=== PATIENT | male | born 1985 | race Caucasian/White ===

== ENCOUNTER → 2020-03-09 | Outpatient (CLI) | payer BC ==
--- NOTE | 2020-03-09 09:56 | Diagnostic Imaging Report ---
CLINICAL INDICATION: Patient states he has sinus pain for 6 months. EXAM: Axial CT scan of the maxillofacial structures without IV contrast . Coronal and sagittal reformations were performed. Auto Exposure Controls were utilized during the CT exam to meet ALARA standards for radiation dose reduction. COMPARISON: None. FINDINGS: PARANASAL SINUSES: FRONTAL: Unremarkable. ETHMOID: Unremarkable. MAXILLARY: There is minimal mucosal thickening on the floor of both maxillary sinuses (left side more than the right) . SPHENOID: Unremarkable. OTHER PARANASAL SINUS FINDINGS: None. NASAL SEPTUM: There is 3 mm rightward nasal septal deviation. VISUALIZED TEMPORAL BONE STRUCTURES: Unremarkable. BONY STRUCTURES: Unremarkable. EXTRACRANIAL SOFT TISSUE/ ORBITS: Unremarkable. IMPRESSION: 1: There is minimal bilateral maxillary sinus disease. 2: There is mild rightward nasal septal deviation. Dictated by: Dictated on workstation # [id number]
== END ==
LOC: RAD FS 08:05
PROVIDERS: ATTEND Family Medicine
DX: J34.2 Deviated nasal septum (principal); R09.89 Other specified symptoms and signs involving the circulatory and respiratory systems
CPT/HCPCS: 70486

== ENCOUNTER 2020-12-24 21:01 | Emergency (ER) | payer BC ==
[~2020-12-24] VITALS: Ht 180.3 cm; Wt 81.6 kg
--- NOTE | 2020-12-24 21:04 | ED Dyspnea ---
General Stated Complaint: SOB History of Present Illness Date Seen by Provider: Dec 24, 2020 Time Seen by Provider: 21:00 Initial Comments 35-year-old male presents with shortness of air for the past 4 days. Has been using his children's albuterol nebulizer with some relief. He does not have any significant past medical history is a non-smoker. States about the last 1 week he has not been feeling well, generalized body aches without fever and some mild weakness. Denies chest pain or wheezing, but having moderate shortness of air which has been getting worse. Allergies and Home Medications Allergies Coded Allergies: No Known Drug Allergies (Unverified , 12/24/20) Home Medications Dexamethasone 6 Mg Tablet, 6 MG PO DAILY Prescribed by: JEZ RODRIGUEZ on 12/24/202158 Ivermectin 3 Mg Tablet, 18 MG PO DAILY Prescribed by: JEZ RODRIGUEZ on 12/24/202153 Patient Home Medication List Home Medication List Reviewed: Yes Review of Systems Review of Systems Constitutional: No diaphoresis, No fever; malaise, weakness EENTM: no symptoms reported Respiratory: cough; No hemoptysis, No orthopnea, No phlegm; short of breath; No stridor, No wheezing Cardiovascular: chest pain (some mild discomfort Right lateral chest wall); No edema, No palpitations, No syncope Gastrointestinal: No abdominal pain, No loss of appetite, No nausea, No vomiting Musculoskeletal: No back pain, No joint pain Skin: No change in color, No rash Psychiatric/Neurological: Denies Headache, Denies Numbness, Denies Paresthesia, Denies Seizure, Denies Tingling, Denies Tremors; Weakness Past Uodtqwv-[id number]-Iewpqw Hx Patient Social History Tobacco Use?: No Physical Exam Vital Signs Vital Signs - First Documented 12/24/20 21:01 Temp 37.5 Pulse 114 Resp 22 B/P (MAP) 126/74 (91) Pulse Ox 96 O2 Delivery Room Air Capillary Refill : Height, Weight, BMI Height: '" Weight: lbs. oz. kg; BMI Method: General Appearance: No Apparent Distress, WD/WN HEENT: PERRL/EOMI, Normal ENT Inspection Neck: Normal Inspection, Non Tender, Supple Respiratory: Chest Non Tender, Lungs Clear, No Accessory Muscle Use, No Respiratory Distress, Crackles (R lower chest) Cardiovascular: No Edema, No JVD, Tachycardia Gastrointestinal: No Organomegaly, Non Tender, Soft Extremity: Normal Capillary Refill, Normal Inspection, Non Tender Neurologic/Psychiatric: Alert, Oriented x3, No Motor/Sensory Deficits, Normal Mood/Affect Skin: Normal Color, Warm/Dry Focused Exam Lactate Level 12/24/20 21:09: Lactic Acid Level 1.21 Lactic Acid Level Laboratory Tests Test 12/24/20 21:09 Lactic Acid Level 1.21 MMOL/L (0.50-2.00) Progress/Results/Core Measures Results/Orders Lab Results Laboratory Tests Test 12/24/20 21:09 Range/Units White Blood Count 4.9 4.3-11.0 10^3/uL Red Blood Count 5.33 4.35-5.85 10^6/uL Hemoglobin 16.1 13.3-17.7 G/DL Hematocrit 46 40-54 % Mean Corpuscular Volume 86 80-99 FL Mean Corpuscular Hemoglobin 30 25-34 PG Mean Corpuscular Hemoglobin Concent 35 32-36 G/DL Red Cell Distribution Width 12.2 10.0-14.5 % Platelet Count 146 130-400 10^3/uL Mean Platelet Volume 11.5 H 7.4-10.4 FL Immature Granulocyte % (Auto) 0 % Neutrophils (%) (Auto) 72 42-75 % Lymphocytes (%) (Auto) 21 12-44 % Monocytes (%) (Auto) 6 0-12 % Eosinophils (%) (Auto) 0 0-10 % Basophils (%) (Auto) 0 0-10 % Neutrophils # (Auto) 3.6 1.8-7.8 X 10^3 Lymphocytes # (Auto) 1.1 1.0-4.0 X 10^3 Monocytes # (Auto) 0.3 0.0-1.0 X 10^3 Eosinophils # (Auto) 0.0 0.0-0.3 10^3/uL Basophils # (Auto) 0.0 0.0-0.1 10^3/uL Immature Granulocyte # (Auto) 0.0 0.0-0.1 10^3/uL D-Dimer 0.35 0.00-0.49 UG/ML Sodium Level 133 L 135-145 MMOL/L Potassium Level 3.5 L 3.6-5.0 MMOL/L Chloride Level 96 L 98-107 MMOL/L Carbon Dioxide Level 22 21-32 MMOL/L Anion Gap 15 H 5-14 MMOL/L Blood Urea Nitrogen 10 7-18 MG/DL Creatinine 1.03 0.60-1.30 MG/DL Estimat Glomerular Filtration Rate > 60 BUN/Creatinine Ratio 10 Glucose Level 120 H 70-105 MG/DL Lactic Acid Level 1.21 0.50-2.00 MMOL/L Calcium Level 9.2 8.5-10.1 MG/DL Corrected Calcium 9.2 8.5-10.1 MG/DL Total Bilirubin 0.5 0.1-1.0 MG/DL Aspartate Amino Transf (AST/SGOT) 23 5-34 U/L Alanine Aminotransferase (ALT/SGPT) 15 0-55 U/L Alkaline Phosphatase 58 40-136 U/L C-Reactive Protein 3.06 H <0.50 MG/DL Total Protein 6.7 6.4-8.2 GM/DL Albumin 4.0 3.2-4.5 GM/DL My Orders Orders - JEZ RODRIGUEZ DO Ed Iv/Invasive Line Start (12/24/20 21:06) Blood Culture (12/24/20 21:06) Cbc With Automated Diff (12/24/20 21:06) Comprehensive Metabolic Panel (12/24/20 21:06) Procalcitonin (Pct) (12/24/20 21:06) Fibrin Degradation Products (12/24/20 21:06) Lactic Acid Analyzer (12/24/20 21:06) Chest 1 View Ap/Pa Only (12/24/20 21:06) Crp Fs (12/24/20 21:06) Ns Iv 1000 Ml (Sodium Chloride 0.9%) (12/24/20 21:15) Blood Culture (12/24/20 21:25) Dexamethasone Injection (Decadron Inje (12/24/20 21:30) Coronavirus Sars-Cov-2 So 2018 (12/24/20 21:33) Medications Given in ED Current Medications Medications Dose Ordered Sig/Mary Anne Route Start Time Stop Time Status Last Admin Dose Admin Dexamethasone Sodium Phosphate 10 mg ONCE ONCE IV 12/24/20 21:30 12/24/20 21:31 DC 12/24/20 21:45 10 MG Vital Signs/I&O 12/24/20 21:01 Temp 37.5 Pulse 114 Resp 22 B/P (MAP) 126/74 (91) Pulse Ox 96 O2 Delivery Room Air Progress Progress Note : Time: 21:59 Progress Note patient feeling better p IVF and decadron. Discussed his labs and CXR telling him my strong suspicion that he has Covid. He refuses swab to be tested. will treat regardless, healthy otherwise, but symptomatic. Will treat with aggressive outpt therapy for presumed C-19. Pt expresses understanding Diagnostic Imaging Diagonstic Imaging: Xray Plain Films/CT/US/NM/MRI: chest Comments Date of Exam:12/24/20 CHEST 1 VIEW AP/PA ONLY INDICATION: Cough. COMPARISON: None. EXAMINATION: Single view of the chest was obtained. FINDINGS: Mild perihilar infiltrates. There is no pneumothorax or effusion. The heart is normal but osseous structures are age-appropriate. IMPRESSION: Mild perihilar infiltrate. Dictated on workstation # [id number] Dict: 12/24/202117 Trans: 12/24/202121 [facility] [id number] Interpreted by: LETTY CHAMPION Electronically signed by: Departure Impression Primary Impression: Viral pneumonia Disposition: HOME, SELF-CARE Condition: Improved Departure-Patient Inst. Patient Instructions: Pneumonia, Adult ED Add. Discharge Instructions: follow up with your PCP in 1 week if not significantly improved, ER sooner if worse. Start the following vitamins and continue for 1 month: Vitamin C 1,000mg twice daily Vitamin D 5,000iu daily Zinc 100mg daily Quercetin 250mg twice daily Melatonin 10mg @ bedtime Aspirin 325mg daily for 2 weeks, then discontinue consider buying a pulse oximeter to monitor your oxygen levels if you continue to have shortness of air. If less than 90%, seek medical care stay hydrated with water and electrolyte sports drinks of your choice (1:1) Scripts Dexamethasone (Decadron) 6 Mg Tablet 6 MG PO DAILY, #5 TAB Prov: JEZ RODRIGUEZ DO 12/24/20 Ivermectin (Ivermectin) 3 Mg Tablet 18 MG PO DAILY for 5 Days, #30 TAB 1 Refill Prov: JEZ RODRIGUEZ DO 12/24/20 JEZ RODRIGUEZ DO Dec 24, 2020 21:03
[2020-12-24] MEDS ORDERED: NS IV 1000 ML 1,000 ML IV SCH (21:15)
[2020-12-24 21:18] LABS: HEMATOCRIT 46 % (40-54); HEMOGLOBIN 16.1 G/DL (13.3-17.7); MEAN CORPUSCULAR HEMOGLOBIN 30 PG (25-34); MEAN CORPUSCULAR HGB CONC 35 G/DL (32-36); MEAN CORPUSCULAR VOLUME 86 FL (80-99); MEAN PLATELET VOLUME 11.5 FL (7.4-10.4); PLATELET COUNT 146 10^3/uL (130-400); WHITE BLOOD COUNT 4.9 10^3/uL (4.3-11.0)
[2020-12-24 21:19] LABS: BASOPHILS % (AUTO) 0 % (0-10); EOSINOPHILS % (AUTO) 0 % (0-10); LYMPHOCYTES # (AUTO) 1.1 X 10^3 (1.0-4.0); LYMPHOCYTES % (AUTO) 21 % (12-44); MONOCYTES # (AUTO) 0.3 X 10^3 (0.0-1.0); MONOCYTES % (AUTO) 6 % (0-12); NEUTROPHILS # (AUTO) 3.6 X 10^3 (1.8-7.8); NEUTROPHILS % (AUTO) 72 % (42-75)
--- NOTE | 2020-12-24 21:22 | Diagnostic Imaging Report ---
INDICATION: Cough. COMPARISON: None. EXAMINATION: Single view of the chest was obtained. FINDINGS: Mild perihilar infiltrates. There is no pneumothorax or effusion. The heart is normal but osseous structures are age-appropriate. IMPRESSION: Mild perihilar infiltrate. Dictated by: Dictated on workstation # [id number]
[2020-12-24 21:50] LABS: BILIRUBIN,TOTAL 0.5 MG/DL (0.1-1.0); BUN/CREATININE RATIO 10; CALCIUM 9.2 MG/DL (8.5-10.1); CARBON DIOXIDE 22 MMOL/L (21-32); CHLORIDE 96 MMOL/L (98-107); CREATININE SERUM 1.03 MG/DL (0.60-1.30); GFR ESTIMATED > 60; GLUCOSE 120 MG/DL (70-105); POTASSIUM 3.5 MMOL/L (3.6-5.0); SODIUM 133 MMOL/L (135-145)
[2020-12-24 21:51] LABS: ALANINE AMINOTRANSFERASE 15 U/L (0-55); ALKALINE PHOSPHATASE 58 U/L (40-136); TOTAL PROTEIN 6.7 GM/DL (6.4-8.2)
[2020-12-24] MEDS ORDERED: IVER3TAB2 PO (21:54)
[2020-12-24] MEDS ORDERED: DEXA6TAB6 PO (21:59)
[2020-12-24 22:14] VITALS: BP 128/86
== END 2020-12-24 22:14 | disposition home or self-care (01) ==
LOC: EDUNIT# 21:01 → ER FS 21:05
DX: J12.9 Viral pneumonia, unspecified (principal)
CPT/HCPCS: 36415; 71045; 80053; 83605; 84145; 85025; 85379; 86141; 87040